=== PATIENT | female | born 1955 | race Caucasian/White ===

== ENCOUNTER 2021-10-05 08:37 | Inpatient (IN) | payer OTHER ==
[~2021-10-05] VITALS: Ht 154.9 cm; Wt 103.4 kg
[2021-10-05] MEDS ORDERED: IPRATROPIU0.2 MG/1 M IH (08:52)
[2021-10-05] MEDS ORDERED: PROTONIX40 M1 PO (08:53)
[2021-10-05] MEDS ORDERED: ZITHROMAX200 MG PO (08:53)
[2021-10-05] MEDS ORDERED: RAYOS5 MG PO (08:53)
[2021-10-05] MEDS ORDERED: ECOTRIN81 MG PO (08:55)
[2021-10-05] MEDS ORDERED: CARBIDOPA-LEVO1 EAC1 PO (08:58)
[2021-10-05] MEDS ORDERED: MONTELUKAST SODI4 M1 (08:58)
[2021-10-05] MEDS ORDERED: ALL DAY ALLERGY10 M3 PO (08:58)
[2021-10-05] MEDS ORDERED: LYRICA100 MG PO (08:59)
[2021-10-05] MEDS ORDERED: OMEPRAZOLE-BIC1 EAC1 PO (08:59)
[2021-10-05] MEDS ORDERED: SALAGEN5 MG PO (08:59)
[2021-10-05] MEDS ORDERED: TRAZODONE HCL150 MG PO (09:00)
[2021-10-05] MEDS ORDERED: SIMVASTATIN5 MG (09:00)
[2021-10-05] MEDS ORDERED: ULTRAM50 MG PO (09:00)
[2021-10-05] MEDS ORDERED: TYLENOL325 MG PO (09:01)
[2021-10-05] MEDS ORDERED: DIOVAN40 MG PO (09:01)
--- NOTE | 2021-10-05 09:03 | NUR ---
SE RECIBE PTE ALERTA Y ORIENTADA X3,EN AMBULANCIA TRASLADADA DE UN CRUCERO PARAMEDICOS REFIERE QUE LA PTE TIENE COPD ,LLEGO OXIGENANDO 89 %,CON MIGUE ,CANALIZADA MANO DERECHA RINGER LACTER.
--- NOTE | 2021-10-05 09:56 | NUR ---
SE LE ORIENTA A PACIENTE SOBRE LAS ORDENES MEDICAS, REFIERE ENTEDER LAS MISMAS. SE LE VALENTINA LAS MUETRAS DE D[place], SE LE REALIZA EKG Y PLACA PORTABLE, PACIENTE LLEGA EN AMBULANCIA CON PAZ Y VENOPUNCION.
--- NOTE | 2021-10-05 15:13 | NUR ---
PACIENTE EN CAMA CON BARANDAS ELEVADAS, EL MOMENTO ENTREGADO POR JENNIFER ELLISON. PACIENTE CONECTADA A MONITOR CARDIACO OXIMETRIA DE PUL[place], ALERTA, CONCIENTE Y ORIENTADA X3 LA MISMA ESTABLE AL MOMENTO. PACIENTE CON ORDENES MEDICAS AL MOMENTO COMPLETADAS Y EN ESPERA DE REVALUACION. SE MANTIENE A PACIENTE EN OBSERVACION JOSE.
--- NOTE | 2021-10-05 18:40 | NUR ---
SE ASISTE PTE EN USO DE SERGIO PARA EVACUAR,SE LE SADIA ASEO PERIANAL.
--- NOTE | 2021-10-05 19:16 | NUR ---
PACIENTE ALERTA, CONCIENTE Y ORIENTADA X3 LA MISMA ESTABLE AL MOMENTO Y SE MANTIENE EN OBSERVACION JOSE. PACIENTE EN ESPERA DE DR. DIAZBAN MCNEIL PARA EVALUACION MEDICA.
== END 2021-10-15 18:39 | disposition home or self-care (01) | DRG 177 ==
LOC: ER 08:37 → ICUI 22:12 → ICU-2 23:14 → ICU 10-07 00:02 → MEDJ 10-12 19:49
PROVIDERS: ADMIT Internal Medicine; ATTEND Internal Medicine
PROC: B24BZZZ Ultrasonography of Heart with Aorta (ICD-10-PCS; principal; 2021-10-05)
PROC: BW24ZZZ Computerized Tomography (CT Scan) of Chest and Abdomen (ICD-10-PCS; 2021-10-05)
PROC: 3E0F7SF Introduction of Other Gas into Respiratory Tract, Via Natural or Artificial Opening (ICD-10-PCS; 2021-10-05)
PROC: 8E0ZXY6 Isolation (ICD-10-PCS; 2021-10-08)
PROC: BW28ZZZ Computerized Tomography (CT Scan) of Head (ICD-10-PCS; 2021-10-10)
PROC: B030ZZZ Magnetic Resonance Imaging (MRI) of Brain (ICD-10-PCS; 2021-10-10)
PROC: 4A12X4Z Monitoring of Cardiac Electrical Activity, External Approach (ICD-10-PCS; 2021-10-12)
DX: J15.212 Pneumonia due to Methicillin resistant Staphylococcus aureus (principal); I67.83 Posterior reversible encephalopathy syndrome; J45.901 Unspecified asthma with (acute) exacerbation; I50.32 Chronic diastolic (congestive) heart failure; Z68.41 Body mass index [BMI] 40.0-44.9, adult; I11.0 Hypertensive heart disease with heart failure; H54.3 Unqualified visual loss, both eyes; J44.9 Chronic obstructive pulmonary disease, unspecified; G20 Parkinson's disease; E78.5 Hyperlipidemia, unspecified; Z86.16 Personal history of COVID-19; Z20.822 Contact with and (suspected) exposure to COVID-19; G47.33 Obstructive sleep apnea (adult) (pediatric); R09.02 Hypoxemia
CPT/HCPCS: 70553